=== PATIENT | male | born 1980 | race Caucasian/White ===

== ENCOUNTER 2016-07-28 14:57 | Emergency (ER) | payer BC, MEDICAID ==
[~2016-07-28] VITALS: Wt 106.0 kg
[~2016-07-28 14:57] MED LIST: ACET1TAB40 PO; CIPR500T4 PO; DOCU-144 PO; FAMO-95 PO; METR500T PO; NAPR220C2 PO; OXYC-281 PO
[2016-07-28] MEDS ORDERED: PANTOPRAZOLE 40 MG INJ IV ONE (17:30)
[2016-07-28] MEDS ORDERED: ACETAMINOPHEN 325 MG TAB PO ONE (17:30)
[2016-07-28] MEDS ORDERED: SOD CHLORIDE 0.9% 500 ML IV ONE (17:30)
[2016-07-28 17:48] LABS: ADD UMIC YES; URINE BILIRUBIN (Dip) NEGATIVE (NEGATIVE); URINE BLOOD (Dip) TRACE (NEGATIVE); URINE COLOR LT. YELLOW (YELLOW); URINE KETONES (Dip) NEGATIVE (NEGATIVE); URINE LEUKOCYTE ESTERASE (Dip) NEGATIVE (NEGATIVE); URINE NITRITE (Dip) NEGATIVE (NEGATIVE); URINE TOTAL PROTEIN (Dip) NEGATIVE (NEGATIVE); URINE UROBILINOGEN (Dip) 0.2 E.U./dL (0.1-1.0)
[2016-07-28 18:12] LABS: URINE RBCS 0-2 /HPF (0)
[2016-07-28 18:24] LABS: ADD SCAN DIFF NO
[2016-07-28 18:27] LABS: BASOPHILS % 0.4 % (0.0-2.0); EOSINOPHILS # 0.3 10^3/ul (0.0-0.5); EOSINOPHILS % 2.7 % (0.0-7.0); HEMOGLOBIN 15.1 g/dl (14.0-18.0); LYMPHOCYTES # 2.9 10^3/ul (0.8-2.9); LYMPHOCYTES % 30.7 % (15.0-51.0); MEAN CORPUSCULAR HEMOGLOBIN 28.2 pg (29.0-33.0); MEAN CORPUSCULAR HGB CONC 33.6 g/dl (32.0-37.0); MEAN CORPUSCULAR VOLUME 84.1 fl (82.0-101.0); MONOCYTE # 0.6 10^3/ul (0.3-0.9); MONOCYTES % 6.5 % (0.0-11.0); NEUTROPHIL # 5.5 10^3/ul (1.6-7.5); NEUTROPHILS % 59.2 % (39.0-77.0); PLATELET COUNT 390 10^3/UL (140-415); RED BLOOD COUNT 5.35 10^6/ul (4.70-6.10); RED CELL DISTRIBUTION WIDTH 12.3 % (11.5-14.5); WHITE BLOOD COUNT 9.3 10^3/ul (4.8-10.8)
[2016-07-28 18:33] LABS: POTASSIUM 4.3 mmol/L (3.5-5.1)
[2016-07-28 18:35] LABS: CREATININE 0.67 mg/dl (0.61-1.24)
[2016-07-28 18:36] LABS: CALCIUM 9.4 mg/dl (8.4-10.2)
--- NOTE | 2016-07-28 19:35 | ERD ---
ER Documentation Chief Complaint Date/Time DATE: 07/28/16 TIME: 19:24 Chief Complaint mild ap left lower abd with one time blood noted in stool. no vomiting. HPI Pleasant 35-year-old male patient coming in today with left lower quadrant pain , left flank pain, and blood seen in stool today. Patient reports history of gastroesophageal reflux disease using [id number] Prilosec for symptomatic relief, history of diverticulitis, patient reports pain is 2/10 on pain scale, reports stabbing, denies nausea, vomiting, fever, or chills. Patient denies dysuria, or hematuria. ROS All systems reviewed and are negative except as per history of present illness. Medications Home Meds Active Scripts Pantoprazole* (Protonix*) 40 Mg Tablet.dr, 40 MG PO DAILY, #20 TAB Prov:RICKY,MARIA EUGENIA 07/28/16 Ciprofloxacin Hcl* (Ciprofloxacin Hcl*) 500 Mg Tablet, 500 MG PO BID for 10 Days , TAB Prov:RICKY,MARIA EUGENIA 07/28/16 Metronidazole (Flagyl) 500 Mg Tab, 500 MG PO Q8 for 10 Days, TAB Prov:RICKY,MARIA EUGENIA 07/28/16 Docusate Sodium* (Colace*) 100 Mg Capsule, 100 MG PO BID, #30 CAP Prov:JONATHAN STANFORD MD 02/04/16 Acetaminophen with Codeine (Acetaminophen-Cod #3 Tablet) 1 Each Tablet, 1 TAB PO Q6H Y for PAIN, #14 TAB Prov:JONATHAN STANFORD MD 02/04/16 Metronidazole* (Flagyl*) 500 Mg Tablet, 500 MG PO BID for 10 Days, TAB Prov:JONATHAN STANFORD MD 02/04/16 Ciprofloxacin Hcl* (Ciprofloxacin Hcl*) 500 Mg Tablet, 500 MG PO BID for 10 Days , TAB Prov:JONATHAN STANFORD MD 02/04/16 Naproxen* (Aleve*) 220 Mg Capsule, 220 MG PO BID Y for PAIN LEVEL 4-6, #1 CAP Prov:ZOHREH SEBASTIAN MD 04/13/15 Famotidine* (Pepcid* AC) 20 Mg Tablet, 20 MG PO DAILY, #1 TAB Prov:ZOHREH SEBASTIAN MD 04/13/15 Oxycodone Hcl-Acetaminophen* (Percocet*) 5-325 Mg Tablet, 1 TAB PO Q4H Y for PAIN LEVEL 6-10, #1 TAB Prov:ZOHREH SEBASTIAN MD 04/13/15 Allergies Allergies: Coded Allergies: No Known Allergy (Unverified , 02/04/16) PMhx/Soc History of Surgery: Yes (RT ARM , RT ANKLE ) Anesthesia Reaction: No Hx Neurological Disorder: No Hx Respiratory Disorders: No Hx Cardiac Disorders: No Hx Psychiatric Problems: No Hx Miscellaneous Medical Probl: No Hx Alcohol Use: No Hx Substance Use: No Hx Tobacco Use: No Physical Exam Vitals Vital Signs Date Time Temp Pulse Resp B/P Pulse Ox O2 Delivery O2 Flow Rate FiO2 07/28/16 19:54 99.2 77 18 145/90 97 Room Air 07/28/16 15:08 98.5 75 802 149/91 99 Physical Exam Const: No acute distress Head: Atraumatic Eyes: Normal Conjunctiva ENT: Normal External Ears, Nose and Mouth. Neck: Full range of motion..~ No meningismus. Resp: Clear to auscultation bilaterally Cardio: Regular rate and rhythm, no murmurs Abd: Left lower quadrant tenderness, epigastric tenderness left flank tenderness. Rectal: Normal tone, No mass, Positive control Stool: Brown Guaiac: Positive Skin: No petechiae or rashes Back: Left flank tenderness Ext: Neur: Awake and alert Psych: Normal Mood and Affect Result Diagram: 07/28/16180907/28/161809 Results 24 hrs Laboratory Tests Test 07/28/16 17:30 07/28/16 18:10 Urine Bilirubin NEGATIVE Urine Clarity CLEAR Urine Color LT. YELLOW Urine Glucose 0.5%% Urine Hemoglobin TRACE Urine Ketones NEGATIVE Urine Leukocyte Esterase NEGATIVE Urine Microscopic RBC 0-2/HPF Urine Microscopic WBC 0-2/HPF Urine Nitrite NEGATIVE Urine Specific [place] 1.025 Urine Total Protein NEGATIVE Urine Urobilinogen 0.2 E.U./dL Urine pH 5.5 Anion Gap 17 Basophils # 0.010^3/ul Basophils % 0.4% Blood Urea Nitrogen 11mg/dl Calcium Level 9.4mg/dl Carbon Dioxide Level 28mmol/L Chloride Level 101mmol/L Creatinine 0.67mg/dl Eosinophils # 0.310^3/ul Eosinophils % 2.7% Glucose Level 252mg/dl Hematocrit 45.0% Hemoglobin 15.1g/dl Lymphocytes # 2.910^3/ul Lymphocytes % 30.7% Mean Corpuscular Hemoglobin 28.2pg Mean Corpuscular Hemoglobin Concent 33.6g/dl Mean Corpuscular Volume 84.1fl Mean Platelet Volume 10.0fl Monocytes # 0.610^3/ul Monocytes % 6.5% Neutrophils # 5.510^3/ul Neutrophils % 59.2% Nucleated Red Blood Cells # 0.010^3/ul Nucleated Red Blood Cells % 0.0/100WBC Platelet Count 89128^3/UL Potassium Level 4.3mmol/L Red Blood Count 5.3510^6/ul Red Cell Distribution Width 12.3% Sodium Level 142mmol/L White Blood Count 9.310^3/ul Current Medications Medications (Trade) Dose Ordered Sig/Chantelle Route PRN Reason Start Time Stop Time Status Last Admin Dose Admin Sodium Chloride (NS) 500 ml @ 500 mls/hr Q1H ONCE IV 07/28/16 17:30 07/28/16 18:29 DC 07/28/16 18:10 Pantoprazole (Protonix Iv) 40 mg ONCE ONCE IV 07/28/16 17:30 07/28/16 17:31 DC 07/28/16 18:10 Acetaminophen (Tylenol Tab) 650 mg ONCE ONCE PO 07/28/16 17:30 07/28/16 17:31 DC 07/28/16 18:10 Procedures/MDM Pleasant 36-year-old male patient presents to emergency department with complaint of left lower quadrant pain, left flank pain, bright red blood on toilet paper today, history of GERD. Patient also reports history of diverticulitis. Laboratory testing provides stable hemoglobin and hematocrit no evidence of hemorrhage, WBCs normal no evidence of acute infection. I have decided to treat based on exam findings empirically with Cipro and Flagyl, start on Protonix once a day 20 days, follow-up with primary care physician. I feel the patient is stable for discharge at this time. I have discussed results, examination findings, the treatment plan with the patient and family present prior to discharge. Indications for emergent reevaluation, side effects of medication were also discussed. All questions were answered. Patient verbalizes understanding and agrees with plan of care. Case discussed with Dr. Morteza Narayan Departure Condition: Stable MARIA EUGENIA GACRÍA Jul 28, 2016 19:34
[2016-07-28] MEDS ORDERED: METR500T14 PO (19:38)
[2016-07-28] MEDS ORDERED: PANT40TA3 PO (19:39)
[2016-07-28] MEDS ORDERED: CIPR500T4 PO (19:39)
[2016-07-28 19:54] VITALS: BP 145/90; PULSE 77; RESP 18; TEMP 99.2
== END 2016-07-28 19:56 | disposition home or self-care (01) ==
LOC: FTE 14:57
DX: R10.32 Left lower quadrant pain (principal)
CPT/HCPCS: 36415; 80048; 81001; 85025; 96374; C9113; J7040; Z7502; Z7610; 81003

== ENCOUNTER 2017-01-10 06:14 | Day surgery (SDC) | payer BC ==
[~2017-01-10] VITALS: Ht 172.7 cm; Wt 88.6 kg
[~2017-01-10 06:14] MED LIST changes: +METR500T14 PO; +PANT40TA3 PO
[2017-01-10 07:03] VITALS: Ht 172.7 cm; Wt 88.6 kg
[2017-01-10] MEDS ORDERED: METF500T4 PO (07:14)
[2017-01-10] MEDS ORDERED: GLIP5TAB13 PO (07:14)
[2017-01-10 07:33] VITALS: BP 120/74; PULSE 61; RESP 10
[2017-01-10] MEDS ORDERED: PROPOFOL 60 ML ONE (07:34)
[2017-01-10] MEDS ORDERED: LIDOCAINE 2% (SDV) 5 ML INJ ONE (07:34)
--- NOTE | 2017-01-10 08:14 | OPPN ---
Date/Time of Note Date/Time of Note DATE: 01/10/17 TIME: 08:12 Operative Report Preoperative Diagnosis Rectal bleeding Postoperative Diagnosis Sigmoid polyp was removed using biopsy forceps Internal hemorrhoids Operation/Procedure Performed Colonoscopy and biopsy Anesthesia Type: MAC Estimated blood loss: none Transfusion Required: no Specimens Sigmoid polyp Complications: no JOANNA STOVER MD Jan 10, 2017 08:14
[2017-01-10 08:29] VITALS: BP 108/67; RESP 63
--- NOTE | 2017-01-10 09:17 | GILP ---
DATE OF PROCEDURE: 01/10/2017 PROCEDURE PERFORMED: Colonoscopy and biopsy. PREOPERATIVE DIAGNOSIS: Rectal bleeding. POSTOPERATIVE DIAGNOSES: 1. Colonoscopy all the way to the cecum. 2. Small sigmoid colon polyp was removed using the biopsy forceps. 3. Internal hemorrhoids. INDICATION: Mr. Keagan Singleton is a 36-year-old male patient who has rectal bleeding. The patient was scheduled for colonoscopy for further evaluation. The procedure and possible complications were well explained to the patient. The patient understood and consented to the procedure. DESCRIPTION OF PROCEDURE: Under the influence of anesthesia, the colonoscope was carefully introduced in the rectum and under direct vision it was advanced all the way to the cecum. FINDINGS: The patient had a small sigmoid colon polyp and it was removed using the biopsy forceps. The patient was noted to have internal hemorrhoids. He tolerated the procedure very well. There was no complication from the procedure. At the end of procedure, he was awake with stable vital signs and he was discharged home in the care of his family. IMPRESSION: 1. Colonoscopy all the way to the cecum. 2. Sigmoid colon polyp was removed using the biopsy forceps. 3. Internal hemorrhoids. PLAN: Anusol HC 2.5 percent cream at bedtime p.r.n. Dictated By: MD NEGAR Wise/hair/gabino /Document#: [id number] CC: Keyshawn Addison MD;*[facility]*
== END 2017-01-10 12:52 | disposition home or self-care (01) ==
LOC: GIL 06:14
PROVIDERS: ATTEND Internal Medicine Gastroenterology
DX: D12.5 Benign neoplasm of sigmoid colon (principal); K64.8 Other hemorrhoids; E11.9 Type 2 diabetes mellitus without complications
CPT/HCPCS: 45380; 82962; 88305; Z7610

== ENCOUNTER 2017-05-18 16:32 | Emergency (ER) | payer BC ==
[~2017-05-18] VITALS: Ht 172.7 cm; Wt 98.7 kg
[~2017-05-18 16:32] MED LIST changes: -ACET1TAB40 PO; -CIPR500T4 PO; -DOCU-144 PO; -FAMO-95 PO; +GLIP5TAB13 PO; +METF500T4 PO; -METR500T PO; -METR500T14 PO; -NAPR220C2 PO; -OXYC-281 PO
[2017-05-18 16:44] VITALS: Ht 172.7 cm; Wt 98.7 kg
[2017-05-18] MEDS ORDERED: ACETAMINOPHEN 500 MG TAB PO STA (17:41)
[2017-05-18] MEDS ORDERED: ONDANSETRON 4 MG INJ IV STA (17:41)
[2017-05-18 18:00] LABS: BASOPHILS % 0.1 % (0.0-2.0); EOSINOPHILS # 0.1 10^3/ul (0.0-0.5); EOSINOPHILS % 0.6 % (0.0-7.0); HEMATOCRIT 46.2 % (42.0-52.0); HEMOGLOBIN 15.6 g/dl (14.0-18.0); LYMPHOCYTES # 1.4 10^3/ul (0.8-2.9); LYMPHOCYTES % 7.9 % (15.0-51.0); MEAN CORPUSCULAR HEMOGLOBIN 28.4 pg (29.0-33.0); MEAN CORPUSCULAR HGB CONC 33.8 g/dl (32.0-37.0); MEAN CORPUSCULAR VOLUME 84.2 fl (82.0-101.0); MEAN PLATELET VOLUME 9.8 fl (7.4-10.4); MONOCYTES % 5.6 % (0.0-11.0); NEUTROPHIL # 15.2 10^3/ul (1.6-7.5); NEUTROPHILS % 85.5 % (39.0-77.0); PLATELET COUNT 373 10^3/UL (140-415); RED BLOOD COUNT 5.49 10^6/ul (4.70-6.10); RED CELL DISTRIBUTION WIDTH 13.1 % (11.5-14.5); WHITE BLOOD COUNT 17.8 10^3/ul (4.8-10.8)
[2017-05-18] MEDS ORDERED: SOD CHLORIDE 0.9% 1,000 ML IV ONE ×2 (18:00→22:30)
--- NOTE | 2017-05-18 18:20 | ERD ---
ER Documentation Chief Complaint Chief Complaint c/o epigastric pain after drinking soda to burp, Fever HPI There is 6-year-old male who presents to the emergency department today complaining of a lot of "gas for the past couple of days. States he drank some soda today to see if it would help. States that he went home from work today and he started getting chills and a fever. States he has burning in his chest as he has pain in his back. Patient has had some vomiting. He is to have diabetes but he stopped taking medication because he cut out sugar. States she has had diverticulitis in the past. Denies any cough ROS All systems reviewed and are negative except as per history of present illness. Medications Home Meds Active Scripts Ibuprofen* (Motrin*) 800 Mg Tab, 800 MG PO TID for 7 Days, #21 TAB Prov:WESLEY ESCOBEDO PA-C 05/19/17 Pantoprazole* (Protonix*) 40 Mg Tablet.dr, 40 MG PO DAILY, #20 TAB Prov:MARIA EUGENIA GARCÍA 07/28/16 Reported Medications Glipizide* (Glipizide*) 5 Mg Tablet, 5 MG PO AC BREAKFAST, TAB 01/10/17 Metformin* (Glucophage*) 500 Mg Tab, 500 MG PO WITH LUNCH DINNER, #60 TAB 01/10/17 Allergies Allergies: Coded Allergies: No Known Drug Allergies (Verified Allergy, Unknown, 01/10/17) PMhx/Soc History of Surgery: Yes (RIGHT WRIST,ELBOW,AND ANKLE) Anesthesia Reaction: No Hx Neurological Disorder: No Hx Respiratory Disorders: No Hx Cardiac Disorders: No Hx Psychiatric Problems: No Hx Miscellaneous Medical Probl: No Hx Alcohol Use: No Hx Substance Use: No Hx Tobacco Use: No Physical Exam Vitals Vital Signs Date Time Temp Pulse Resp B/P Pulse Ox O2 Delivery O2 Flow Rate FiO2 05/18/17 19:49 100.3 101 18 112/55 Room Air 05/18/17 16:44 101.2 113 20 134/95 96 Physical Exam Const: NAD Head: Atraumatic Eyes: Normal Conjunctiva ENT: Is normal. Nose no drainage. Throat erythema no exudate. Neck: Full range of motion..~ No meningismus. Resp: Clear to auscultation bilaterally. No absent breath sounds. No wheezing. Cardio: Regular rate and rhythm, no murmurs Abd: Soft, tender in his left lower quadrant non distended. Normal bowel sounds tenderness to McBurney's. Skin: No petechiae or rashes Back: Thoracic spine no midline tenderness. Full active range of motion. Ext: No cyanosis, or edema Neur: Awake and alert Psych: Normal Mood and Affect Result Diagram: 05/18/17 1751 05/18/17 1751 Results 24 hrs Laboratory Tests Test 05/18/17 16:52 05/18/17 17:51 05/18/17 19:05 05/18/17 20:02 Bedside Glucose 131mg/dL White Blood Count 17.810^3/ul Red Blood Count 5.4910^6/ul Hemoglobin 15.6g/dl Hematocrit 46.2% Mean Corpuscular Volume 84.2fl Mean Corpuscular Hemoglobin 28.4pg Mean Corpuscular Hemoglobin Concent 33.8g/dl Red Cell Distribution Width 13.1% Platelet Count 50582^3/UL Mean Platelet Volume 9.8fl Neutrophils % 85.5% Lymphocytes % 7.9% Monocytes % 5.6% Eosinophils % 0.6% Basophils % 0.1% Nucleated Red Blood Cells % 0.0/100WBC Neutrophils # 15.210^3/ul Lymphocytes # 1.410^3/ul Monocytes # 1.010^3/ul Eosinophils # 0.110^3/ul Basophils # 0.010^3/ul Nucleated Red Blood Cells # 0.010^3/ul Sodium Level 140mmol/L Potassium Level 3.9mmol/L Chloride Level 104mmol/L Carbon Dioxide Level 23mmol/L Anion Gap 17 Blood Urea Nitrogen 12mg/dl Creatinine 0.89mg/dl Glucose Level 153mg/dl Calcium Level 9.1mg/dl Total Bilirubin 0.5mg/dl Direct Bilirubin 0.00mg/dl Indirect Bilirubin 0.5mg/dl Aspartate Amino Transf (AST/SGOT) 41IU/L Alanine Aminotransferase (ALT/SGPT) 60IU/L Alkaline Phosphatase 131IU/L Total Protein 8.2g/dl Albumin 4.4g/dl Globulin 3.80g/dl Albumin/Globulin Ratio 1.15 Lipase 69U/L Prothrombin Time 13.6Sec Prothrombin Time Ratio 1.1 INR International Normalized Ratio 1.03 Activated Partial Thromboplast Time 28.3Sec Lactic Acid Level 1.6mmol/L Troponin I < 0.012ng/ml Urine Color STRAW Urine Clarity CLEAR Urine pH 5.0 Urine Specific [place] 1.010 Urine Ketones NEGATIVEmg/dL Urine Nitrite NEGATIVEmg/dL Urine Bilirubin NEGATIVEmg/dL Urine Urobilinogen NEGATIVEmg/dL Urine Leukocyte Esterase NEGATIVELeu/ul Urine Microscopic RBC 0/HPF Urine Microscopic WBC 2/HPF Urine Bacteria FEW/HPF Urine Mucus FEW/HPF Urine Hemoglobin 1+mg/dL Urine Glucose NEGATIVEmg/dL Urine Total Protein NEGATIVEmg/dl Current Medications Medications (Trade) Dose Ordered Sig/Chantelle Route PRN Reason Start Time Stop Time Status Last Admin Dose Admin Sodium Chloride (NS) 1,000 ml @ 1,000 mls/hr Q1H ONCE IV 05/18/17 18:00 05/18/17 18:59 DC 05/18/17 18:03 Acetaminophen (Tylenol Tab) 500 mg ONCE STAT PO 05/18/17 17:41 05/18/17 17:44 DC 05/18/17 18:03 Ondansetron HCl (Zofran Inj) 4 mg ONCE STAT IV 05/18/17 17:41 05/18/17 17:44 DC 05/18/17 18:02 Sodium Chloride 3060 ml 3,060 ml BOLUS OVER 2 HOURS STAT IV* 05/18/17 18:31 05/18/17 18:33 DC 05/18/17 20:03 Ceftriaxone Sodium (Rocephin) 50 ml @ 100 mls/hr ONCE ONCE IVPB 05/18/17 19:00 05/18/17 19:29 DC 05/18/17 20:13 Ketorolac Tromethamine (Toradol) 30 mg ONCE STAT IV 05/18/17 19:19 05/18/17 19:20 DC 05/18/17 20:13 Ibuprofen 800 mg 800 mg ONCE ONCE PO 05/18/17 22:30 05/18/17 22:31 DC 05/18/17 23:15 Sodium Chloride (NS) 1,000 ml @ 1,000 mls/hr Q1H ONCE IV 05/18/17 22:30 05/18/17 23:29 DC 05/18/17 22:12 DIAGNOSTIC IMAGING REPORT Patient: QUINCY FAUST : 1980 Age: 36 Sex: M MR #: [id number] DOS: 05/18/17 0000 Ordering MD: WESLEY ESCOBEDO PA-C Location: [facility] Room/Bed: PROCEDURE: XR Chest. CLINICAL INDICATION: chest pain TECHNIQUE: Single AP view of the chest were obtained COMPARISON: 04/07/2015 FINDINGS: The heart and mediastinum are within normal limits. The pulmonary vasculature are unremarkable. The aorta is unremarkable. There is no lung consolidation, pleural effusion or pneumothorax. There is no acute osseous abnormality. IMPRESSION: No acute disease. RPTAT: AA .Sanchez Vilchis MD, MD Date Time Electronically viewed and signed by .Sanchez Vilchis MD, MD on 05/18/2017 18:17 .J/ CC: WESLEY ESCOBEDO PA-C RUN DATE: 05/18/17 [facility] PAGE 1 RUN TIME: [id number] [place] [address] Rupesh Boyce M.D. [facility] CHRISTOPHE#: [id number] Name: FAUSTQUINCY Age/Sex: 36/M Attend Dr: DANILO CANO DO Acct: [id number] MR# : [id number] : 1980 Location: [facility] Admit: 05/18/17 Specimen: [id number] Status: Complete Demar: 05/18/17 Rcvd: 05/18 Source: ARASH Rebolledo Descrip: Procedure Result Microbiology INFLUENZA A & B BY EIA Final INFLU A&B BY EIA INFLUENZA A NEGATIVE (Ref Range Neg) INFLUENZA B NEGATIVE (Ref Range Neg) ................................................................................ ............ Flags: Critical Hi = *H Critical Lo = *L Microbiology Abnormal = * Abnormal Hi = H Abnormal Lo = L Blood Bank Abnormal = * Susceptability Flags: S = Sensitive R = Resistant I = Intermediate END OF REPORT Procedures/MDM 36-year-old male who presents emergency department today complaining of burning in his chest, vomiting and fever. Patient did have some mild left lower quadrant tenderness otherwise the remainder of his physical exam is benign. Given that patient was febrile and tachycardic and his oxygen saturation was 96 % I did obtain images as well as laboratory workup EKG read and interpreted by Dr. Cano. Rate 103 bpm. No QT prolongation. Sinus tachycardia. EKG read and interpreted by Dr. Petty [address] changes. No QT prolongation. Normal sinus rhythm. Laboratory workup shows an elevated white blood cell count of 17.8. He is not anemic. Platelets are within normal limits. Electrolytes are within normal limits. Glucose is within normal limits. Liver enzymes are within normal limits. Pace is within normal limits. Coags are within normal limits. Lactic acid is within normal limits Troponin is negative and less than 0.012 UA is negative for infection Chest x ray is negative Influenza A and B is negative CT abdomen pelvis shows no acute inflammatory changes. Mild sigmoid diverticulosis without acute diverticulitis. There are fatty changes of the liver. There are 2 mm nonobstructing left intrarenal calculus. There is a normal appendix. Liver, gallbladder pancreas spleen adrenals and kidneys are within normal limits. Patient was given Rocephin, IV fluids, Toradol, Tylenol, ibuprofen here in the emergency department reported feeling significantly better I had initially discussed the patient with Dr. Cano who is the one I had recommended a sepsis workup. After all laboratory work and imaging return I discussed the patient further with Dr. Petty based on the patient's 2 EKGs patient likely has pericarditis. At this time indication for acute surgical abdomen. Patient denied any history of IV drug use or history of blood clots and I have low suspicion for pneumonia, PE, abscess, pleural effusion or pneumothorax. I do not feel that he requires a CT of his chest. Patient's troponin was negative and I have low suspicion for acute coronary syndrome. I have low suspicion for endocarditis at this time however, patient was given strict return precautions for any worsening of symptoms, fevers, chest pain or shortness of breath. Dr. Petty does not feel the patient requires further workup , imaging or admission at this time. Patient was given a prescription for ibuprofen to take 3 times a day for the next week. Patient was given strict instructions to take this medication. At this time the patient is stable for discharge and outpatient management. Patient should follow up with their PCP in the next 1-2 days. They may return to the emergency department sooner for any persistent or worsening of symptoms. Patient understood and agreed with the plan. Departure Diagnosis: Primary Impression: Pericarditis Pericarditis type: unspecified type Chronicity: acute Qualified Code: I30.9 - Acute pericarditis, unspecified type Condition: WESLEY Blank PA-C May 18, 2017 18:20
[2017-05-18 18:29] LABS: ALBUMIN 4.4 g/dl (3.3-4.9); ALBUMIN/GLOBULIN RATIO 1.15; BILIRUBIN,INDIRECT 0.5 mg/dl (0-1.1); BILIRUBIN,TOTAL 0.5 mg/dl (0.2-1.3); CALCIUM 9.1 mg/dl (8.4-10.2); CREATININE 0.89 mg/dl (0.61-1.24); POTASSIUM 3.9 mmol/L (3.5-5.1); TOTAL PROTEIN 8.2 g/dl (6.1-8.1)
[2017-05-18] MEDS ORDERED: SODIUM CHLORIDE 0.9% 1L BAG IV* STA (18:31)
[2017-05-18] MEDS ORDERED: CEFTRIAXONE 1 GM/50 ML (PMX) 50 ML IVPB ONE (19:00)
[2017-05-18] MEDS ORDERED: KETOROLAC 30 MG INJ IV STA (19:19)
[2017-05-18 20:18] LABS: INR 1.03; PARTIAL THROMBOPLASTIN TIME 28.3 Sec (25.0-35.0); PROTIME 13.6 Sec (11.9-14.9); PT RATIO 1.1
[2017-05-18 20:20] LABS: ADD UMIC YES; UR ASCORBIC ACID NEGATIVE (NEGATIVE); UR BACTERIA FEW /HPF (NONE SEEN); UR BILIRUBIN (Dip) NEGATIVE (NEGATIVE); UR BLOOD (Dip) 1+ mg/dL (NEGATIVE); UR CLARITY CLEAR (CLEAR); UR COLOR STRAW (YELLOW); UR GLUCOSE (Dip) NEGATIVE (NEGATIVE); UR KETONES (Dip) NEGATIVE (NEGATIVE); UR LEUKOCYTE ESTERASE (Dip) NEGATIVE Leu/ul (NEGATIVE); UR MUCUS FEW /HPF (NONE SEEN); UR NITRITE (Dip) NEGATIVE (NEGATIVE); UR RBC 0 /HPF (0-5); UR TOTAL PROTEIN (Dip) NEGATIVE (NEGATIVE); UR UROBILINOGEN (Dip) NEGATIVE (NEGATIVE)
--- NOTE | 2017-05-18 20:22 | RADRPT ---
PROCEDURE: CT abdomen and pelvis without contrast. CLINICAL INDICATION: Abdominal pain TECHNIQUE: Continues 2.5 mm axial images were obtained from the domes of the diaphragms to the inf erior pubic rami. No oral or intravenous contrast was administered. The calculated dose length prod uct (DLP) = 1402.89 mGy-cm. Exam CTDlvol = 20.82 mGy. One or more of the following dose reduction techniques were used: Automated exposure control, adjustment of the mA and or KV according to patie nt size, or use of iterative reconstruction technique. One or more of the following dose reduction techniques were used: Automated exposure control, adjustment of the mA and or KV according to patien t size, or use of iterative reconstruction technique. COMPARISON: 02/04/2016 FINDINGS: Images through the lung bases bases demonstrate mild patchy atelectasis. No pleural pericardial flui d is seen. There is fatty change of the liver. Otherwise, liver, gallbladder, pancreas, spleen, adrenals, and k idneys are within within normal limits. There is a 2 mm nonobstructing left intrarenal calculus. No associated hydronephrosis is seen. Aorta is normal in caliber. No pathologically enlarged mesenteric lymph nodes are seen. The stomach and small bowel loops are within normal limits. There is no small bowel dilatation or obstruction. No free fluid, free air, abscess is now in the upper abdomen CT pelvis: Images through the pelvis demonstrate no free fluid, free air, abscess. Bladder is wesley lly distended grossly unremarkable. The prostate and seminal vesicles are unremarkable. Evaluation o f the colon demonstrates mild sigmoid diverticulosis. There is no acute diverticulitis or colitis. N ormal appendix and terminal ileum are identified. There are no pathologically enlarged iliac chain l ymph nodes. No destructive bony lesions are seen. IMPRESSION: 1. No acute inflammatory process, mass, or adenopathy. 2. Mild sigmoid diverticulosis without acute diverticulitis. 3. Fatty change of the liver. 4. 2 mm nonobstructing left intrarenal calculus. 5. Normal appendix. 6. Chronic subcutaneous scarring in the anterior right thigh RPTAT: .Link Solorio MD, MD Date Time Electronically viewed and signed by .Link Solorio MD, on 05/18/2017 20:22 .W/
[2017-05-18] MEDS: IBUPROFEN 800 MG TAB PO ONE ×2 (22:44→23:15)
[2017-05-19] MEDS ORDERED: IBUP800T25 PO (00:01)
[2017-05-19 00:22] VITALS: BP 126/73; PULSE 85; RESP 20; TEMP 98
== END 2017-05-19 00:24 | disposition home or self-care (01) ==
LOC: FTE 16:32
DX: I30.9 Acute pericarditis, unspecified (principal); Z79.84 Long term (current) use of oral hypoglycemic drugs
CPT/HCPCS: 36415; 71010; 74176; 80053; 81001; 82962; 83605; 83690; 84484; 85025; 85610; 85730; 87040; 87086; 87400; 93005; 96361; 96365; 96375; J0696; J1885; J2405; J7030; Z7502; Z7610

== ENCOUNTER 2017-12-26 23:57 | Emergency (ER) | END 2017-12-27 02:26 | disposition home or self-care (01) ==